=== PATIENT | male | born 1995 | race Caucasian/White ===

== ENCOUNTER → 2017-12-04 | Outpatient (CLI) | payer OTHER ==
--- NOTE | 2017-12-04 17:00 | US ---
EXAMINATION TYPE: US kidneys/renal and bladder DATE OF EXAM: 12/04/2017 COMPARISON: NONE CLINICAL HISTORY: N39.44 Nocturnal enuresis. Incontinence, nocturnal enuresis EXAM MEASUREMENTS: Right Kidney: 11.4 x 4.1 x 4.6 cm Left Kidney: 10.9 x 4.6 x 4.2 cm Post Void Residual Volume: 19.6 mL Right Kidney: no evidence of hydronephrosis or mass Left Kidney: no evidence of hydronephrosis or mass Bladder: appears wnl Bilateral Jets seen: yes Normal Post Void Residual: yes There is no evidence for hydronephrosis at this point in time. No nephrolithiasis is seen. No nick s are identified. The urinary bladder is anechoic. Bilateral ureteral jets are seen. IMPRESSION: 1. No abnormal post void residual. 2. No hydronephrosis or nephrolithiasis.
== END | disposition home or self-care (01) ==
LOC: RADUSWWP 15:11
PROVIDERS: ATTEND Urology
DX: N39.44 Nocturnal enuresis (principal)
CPT/HCPCS: 76770